=== PATIENT | female | born 1930 | race Caucasian/White ===

== ENCOUNTER 2018-08-21 02:18 | Inpatient (IN) | payer OTHER ==
[~2018-08-21] VITALS: Ht 157.5 cm; Wt 55.3 kg
[2018-08-21 02:18] VITALS: BP 141/57
[~2018-08-21 02:18] MED LIST: ADULT LOW DOSE81 MG PO; ADVAIR 250-501 EACH INH; APAP500 PO; BENADRYL25 MG PO; BUMETANIDE 1 MG1 M1 PO; BUMEX2 MG PO; CELEBREX 200 M200 M1 PO; CELEXA 20 MG TA20 M1 PO; CELEXA 20 MG TA20 MG PO; CELEXA PO; CLONAZEPAM 0.50.5 M1 PO; CLONAZEPAM PO; COLACE1 EAC1 RC; COLACE100 MG PO; CYMBALTA60 MG PO; ENBREL PO; IMDUR 30 MG TAB30 M1 PO; K-DUR10 ME1 PO; K-DUR10 MEQ PO; LEVOTHROID75 MCG PO; LEVOTHYROXIN0.075 MG PO; LOPRESSOR25 PO; LYRICA; MELATONIN3 MG PO; METOPROLOL TART25 MG PO; NEURONTIN 400400 M1 PO; NEURONTIN 400M400 M2 PO; NIASPAN 500 MG500 M1 PO; NITROQUICK0.4 MG SUBLING; OMEPRAZOLE20 MG PO; PLAVIX 75 MG TA75 MG PO; PROVENTIL; SIMVASTATIN40 MG PO; TOPROL XL25 MG PO; TRAMADOL; ZOFRAN ODT4 MG PO
[2018-08-21] MEDS ORDERED: PROTONIX 20 MG20 M1 PO (02:29)
[2018-08-21 02:42] LABS: ABSOLUTE NEUTROPHILS 4.7 thou/uL (1.4-8.2); BASOPHILS 1.3 % (0.0-2.0); EOSINOPHILS 4.8 % (0.0-3.0); HEMOGLOBIN 12.2 gm/dL (12.0-15.0); LYMPHOCYTES 29.6 % (24.0-44.0); MCV 91.1 fL (80.0-100.0); MONOCYTES 10.2 % (1.0-8.0); PLATELET COUNT 199 thou/uL (150-400); POLYS 54.1 % (36.0-66.0); RBC 3.95 mil/uL (4.20-5.00); RDW 12.8 % (10.5-14.5); WBC 8.8 thou/uL (4.0-11.0)
[2018-08-21 02:49] LABS: ANION GAP 10 mmol/L (7-16); BUN 17 mg/dL (7-18); CALCIUM 8.5 mg/dL (8.5-10.1); CHLORIDE 107 mmol/L (98-107); CO2 25 mmol/L (21-32); CREATININE 1.1 mg/dL (0.6-1.0); GLUCOSE 98 mg/dL (74-106); POTASSIUM 4.2 mmol/L (3.5-5.1); SODIUM 142 mmol/L (136-145)
[2018-08-21 02:57] LABS: TROPONIN-I <0.06 ng/mL (<0.06)
[2018-08-21 06:32] LABS: CHOLESTEROL 114 mg/dL (<200); HDL CHOLESTEROL 43 mg/dL (>40); LDL CHOLESTEROL 22 mg/dL (<100); TC:HDL 2.7 Ratio (Not establshd); TRIGLYCERIDE 246 mg/dL (<150); VLDL 49 mg/dL (<40)
[2018-08-21 06:34] LABS: SERUM ASSESSMENT Moderate Lipemia
[2018-08-21 07:20] VITALS: BP 125/62
[2018-08-21 12:00] VITALS: BP 101/55
[2018-08-21 16:00] VITALS: BP 109/44
--- NOTE | 2018-08-21 16:58 | 2DMMODE ---
[facility] [address] [place] [address] 2 D/M-MODE ECHOCARDIOGRAM Name: MILLYJUAN SURJIT Room #: 211-P ADM IN M.R.#: [id number] ������������� Admission: 08/21/18 ������������� Attend Phys: Nilton Kessler, Discharge: ��� ������������� ��� Date of : 32 Date of Service: 08/21/18 1658 �� Report #: [id number] �������� ��������������������������������������������[id number] THIS REPORT FOR: //name// APPROVED REPORT Study performed: 08/21/2018 12:18:12 EXAM: Comprehensive 2D, Doppler, and color-flow Echocardiogram Patient Location: Bedside Room #: 211 Status: on-call BSA: 1.55 HR: 81 bpm BP: 125/62 mmHg Rhythm: NSR Other Information Study Quality: Adequate Risk Factors: Cardiac Risk Factors: HTN, Hyperlipidemia Indications Dyspnea CAD Chest Pain 2D Dimensions IVSd: 10.49 (7-11mm) LVOT Diam: 18.00 (18-24mm) LVDd: 40.34 mm PWd: 10.85 (7-11mm) Ascending Ao: 25.96 (22-36mm) LVDs: 27.21 (25-40mm) Aortic Root: 26.22 mm LV Single Plane 4CH: 60.96 % LV Single Plane 2CH: 68.33 % Biplane EF: 64.3 % Volumes Left Atrial Volume (Systole) Single Plane 4CH: 20.17 mL Single Plane 2CH: 35.82 mL LA ESV Index: 22.00 mL/m2 Aortic Valve AoV Peak Jaron.: 1.59 m/s AO Peak Gr.: 10.05 mmHg LVOT Max P.67 mmHg [facility] [address] [place] [address] 2 D/M-MODE ECHOCARDIOGRAM Name: JUAN ATKINS Room #: [address] [place] [address] [place] .R.#: [id number] ������������� Admission: 08/21/18 ������������� Attend Phys: Nilton Kessler, Discharge: ��� ������������� ��� Date of : 32 Date of Service: 08/21/18 1658 �� Report #: [id number] �������� ��������������������������������������������[id number] LVOT Max V: 1.19 m/s ALESSANDRO Vmax: 1.89 cm2 AI Vmax: 3.86 m/s AI Ocean: 2.30 m/s2 AI PHT: 485.64 ms Mitral Valve E/A Ratio: 0.7 MV Decel. Time: 241.29 ms MV E Max Jaron.: 0.73 m/s MV A Jaron.: 1.07 m/s MV PHT: 69.97 ms IVRT: 72.66 ms TDI E/Lateral E': 14.60 E/Medial E': 10.43 Medial E' Jaron.: 0.07 m/s Lateral E' Jaron.: 0.05 m/s Pulmonary Valve PV Peak Jaron.: 1.14 m/s PV Peak Gr.: 5.19 mmHg Pulmonary Vein P Vein S: 0.62 m/s P Vein A: 0.24 m/s P Vein D: 0.47 m/s P Vein A Dur.: 100.3 msec P Vein S/D Ratio: 1.32 Tricuspid Valve TR Peak Jaron.: 2.45 m/s RAP Estimate: 7.00 mmHg TR Peak Gr.: 23.93 mmHg PA Pressure: 31.00 mmHg Left Ventricle The left ventricle is normal size. There is normal LV segmental wall motion. There is normal left ventricular wall thickness. Left ventricular systolic function is normal. The left ventricular ejection fraction is within the normal range. LVEF is 60-65%. Mild diastolic dysfunction is present (impaired relaxation pattern). Right Ventricle The right ventricle is normal size. The right ventricular systolic function is normal. Atria The left atrium size is normal. The right atrium size is [facility] [address] [place] [address] 2 D/M-MODE ECHOCARDIOGRAM Name: JUAN ATKINS Room #: [address] [place] [address] [place] ..#: [id number] ������������� Admission: 08/21/18 ������������� Attend Phys: Nilton Kessler, Discharge: ��� ������������� ��� Date of : 32 Date of Service: 08/21/18 1658 �� Report #: [id number] �������� ��������������������������������������������[id number] normal. Aortic Valve The Aortic valve is sclerotic. Mild to moderate aortic regurgitation. There is no aortic valvular stenosis. Mitral Valve There is mitral annular calcification. Mild mitral regurgitation. No evidence of mitral valve stenosis. Tricuspid Valve The tricuspid valve is normal in structure. Mild tricuspid regurgitation. Pulmonary artery pressure is 31 mmHg. Pulmonic Valve The pulmonary valve is normal in structure. Mild to moderate pulmonic regurgitation. Great Vessels The aortic root is normal in size. IVC is normal in size and collapses >50% with inspiration. Pericardium There is no pericardial effusion. <Conclusion> The left ventricle is normal size. LVEF is 60-65%. The Aortic valve is sclerotic. Mild to moderate aortic regurgitation. There is mitral annular calcification. Mild mitral regurgitation. The tricuspid valve is normal in structure. Mild tricuspid regurgitation. Pulmonary artery pressure is 31 mmHg. The pulmonary valve is normal in structure. Mild to moderate pulmonic regurgitation. There is no pericardial effusion. ��������������������������������������������� <ELECTRONICALLY SIGNED> ���������������������������������������� By: Paulino Carrasco MD ��������������������������������������������� 08/21/18 1658 1658 57 Paulino Carrasco MD /INF
--- NOTE | 2018-08-21 19:10 | HC ---
[facility] [place] [place] [address] CONSULTATION Name: JUAN ATKINS Room #: 211-P ADM IN M.R.#: [id number] Admission: 08/21/18 ������������������ Attend Phys: Nilton Kessler MD Discharge: ������������������ Date of : 31 Report #: [id number] THIS REPORT FOR: //name// CC: Nilton Hill REASON FOR CONSULTATION: Chest pain. HISTORY OF PRESENT ILLNESS: This is a very pleasant 88-year-old female patient with known coronary artery disease, having undergone stenting by Dr. Barry at [facility] in the past, presented for chest discomfort. The patient stated she has been having these substernal discomforts lasting less than 5 minutes, associated with shortness of breath. These were midsternal and nonradiating except to the left chest and armpit. Did not go into the neck or the back. Said that they occurred when lying down and not with activity. She has been very active with her daily activities and did not notice any significant symptoms. She stated she took 12 nitro sublingual for these episodes without any improvement whatsoever. She noted that it likely did not even make a slight dent in discomfort. She did have some tomato soup in the evening and had emesis with eruptions post. She took a Prilosec also last night for which she has a history of gallbladder disease and acid peptic disease. She states that this discomfort is different than what she had when she was stented. She has no syncope or near syncope, no palpitations per se. No dependent or nondependent edema. PAST MEDICAL HISTORY: Significant for: 1. Coronary artery disease. 2. Hypertension. 3. Hypothyroidism, supplemented medically. 4. Acid peptic disease. PAST SURGICAL HISTORY: Significant for: 1. Spinal cord stimulator insertion. 2. Intracoronary stenting. 3. Tonsillectomy, adenoidectomy. MEDICATIONS: Synthroid 0.075 mg daily, metoprolol 25 mg b.i.d., aspirin 81 mg b.i.d., Benadryl as needed, clonazepam b.i.d., Zocor 40 mg at bedtime, potassium chloride 10 mEq daily, Advair 250/50 Diskus 1 puff b.i.d., Colace daily, Imdur 30 mg daily, Protonix 20 mg daily, sublingual nitroglycerin p.r.n., Celexa 20 mg daily, Neurontin 400 mg t.i.d. and melatonin at bedtime. SOCIAL HISTORY: The patient does not smoke currently, but is a former smoker of 1-2 packs a day for 40 years. She has quit in 1990. She does not consume alcohol, does not follow a particular exercise regimen or dietary restriction. ELECTROCARDIOGRAM: Normal sinus rhythm, nonspecific [place] [address] CONSULTATION Name: JUAN ATKINS Room #: 211-P [facility] IN M.R.#: [id number] Admission: 08/21/18 ������������������ Attend Phys: Nilton Kessler MD Discharge: ������������������ Date of : 31 Report #: [id number] REVIEW OF SYSTEMS: Except for symptoms previously mentioned and those commensurate with comorbid state, the 10-point review of system is negative. ALLERGIES: ERYTHROMYCIN BASE, WHICH CAUSES UPSET STOMACH. LABORATORY DATA: Demonstrates BUN and creatinine of 17 and 1.1 with a potassium of 4.2. H and H is 12.2 and 36.0 with a platelet count 199,000. RADIOLOGIC DATA: Pending. PHYSICAL EXAMINATION: GENERAL: Well-developed, well-nourished female resting comfortably, in no acute distress. VITAL SIGNS: Noted and reviewed in the chart. HEENT: Normocephalic, atraumatic. Pupils are equal, round, reactive to light and accommodation. Extraocular muscles are intact. Sclerae and conjunctivae are anicteric. NECK: JVD is normal. Carotid upstrokes are bilaterally symmetrical. No bruits are heard. No thyromegaly. No lymphadenopathy. LUNGS: Clear to auscultation. No wheezes, rhonchi or crackles. No CVA tenderness. CARDIAC: Demonstrates a regular rhythm. Normal first and second heart sounds. No ventricular or atrial gallops, no rubs noted. No murmurs. No lifts or heaves, PMI normal. ABDOMEN: Soft, nontender, nondistended. Normal bowel sounds. EXTREMITIES: Without cyanosis, clubbing or edema. Distal pulses are intact. DTR symmetrical. NEUROLOGIC: Cranial nerves 2-12 are grossly normal and symmetrical. PSYCHIATRIC: Alert, oriented with normal affect. SKIN: Warm and dry. IMPRESSION: 1. Chest pain, some atypical and typical features. She does have coronary artery disease and risk factors and I think that I am going to increase her GI regimen with the Prilosec to 40 mg a day, but I am also going to get a perfusion scan on Thursday just to exclude any type of ischemic burden. Symptomatology may be different. She does not remember exactly what the symptoms were prior to her stent, so her notification of this being completely different may not be accurate. We will get a 2D echo Doppler to rule out any structural abnormalities also. 2. Hypertension. We will have to check her blood pressures while in the hospital and then we can augment them as necessary. 3. Hypothyroidism, treated medically. 4. History of transient ischemic attacks, which are very vague and I do not have any data on this. We may need to pursue this more fully subsequently. [facility] [place] [address] CONSULTATION Name: JUAN ATKINS SURJIT Room #: 211-P ADM IN .R.#: [id number] Admission: 08/21/18 ������������������ Attend Phys: Nilton Kessler MD Discharge: ������������������ Date of : 31 Report #: [id number] 5. Dyslipidemia. The patient is on a statin. We will see where the LDLs are from her current dosing and then make recommendations subsequent to that. We discussed briefly [employer] step 1 diet, which we will proceed with more emphasis subsequently. ��������������������������������������������� <ELECTRONICALLY SIGNED> ���������������������������������������� By: Paulino Carrasco MD ��������������������������������������������� 08/21/18 1910 1145 1235 Paulino Carrasco MD /nt
--- NOTE | 2018-08-21 19:50 | NUR ---
PATIENT ALERT AND ORIENTED WITH DAUGHTER AT BEDSIDE. PATIENT UP WITH WALKER WITH SBA TO BATHROOM, BUT SOMETIMES FORGETS TO CALL NURSE. PATIENT STATES SHE USES BOTH WALKER AND CANE AT HOME AND LIVES IN A TRI-LEVEL HOME. PATIENT DENIED ANY CHEST PAIN THIS AFTER NOON BUT STATED SHE HAD MILD PAIN ON THE LEFT SIDE OF HER CHEST THIS AM. STRESS TEST SCHEDULED FOR THURSDAY.
[2018-08-21 20:15] VITALS: BP 109/48
--- NOTE | 2018-08-22 04:17 | NUR ---
PT CALLING APPROPRIATLY FOR ASSISTANCE, VSS, NO C/O PAIN, [place], WONDERING WHEN SHE WILL GO HOME, WILL CON'T TO MONITOR PER PPOC.
[2018-08-22 04:30] VITALS: BP 134/74
[2018-08-22 08:50] VITALS: BP 122/47
[2018-08-22 12:00] VITALS: BP 126/43
[2018-08-22 16:00] VITALS: BP 130/45
--- NOTE | 2018-08-22 17:38 | NUR ---
ASSESSMENT DOCUMENTED. PT ALERT AND ORIENTED. PLEASANT AND COOPERATIVE WITH CARES. DENIED HAVING PAIN OR DISCOMFORT. NO RESPITORY OR CARDIAC DISTRESS NOTED. WILL CONTINUE TO MONITOR.
[2018-08-22 19:54] VITALS: BP 123/44
--- NOTE | 2018-08-23 03:41 | NUR ---
ASSESSMENT DOCUMENTED.PT BEEN RESTING IN NO ACUTE DISTRESS.A/OX4.VSS.PT DENIES CHEST PAIN.UP WITH A WALKER.SR ON MONITOR.NPO AFTER MIDNOC FOR STRESS TEST THIS AM AND PROBABLY GO HOME LATER IF STRESS TEST IS NEGATIVE.WILL CONT TO MONITOR PER POC.
[2018-08-23 04:14] VITALS: BP 114/46
--- NOTE | 2018-08-23 08:06 | EKG ---
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 : 1930 Requested By: Imani Fernando Order Number: [id number] MD: Gilberto Noble Measurements Intervals [place] Rate: 67 P: 67 CO: 156 QRS: 14 QRSD: 81 T: 44 QT: 433 QTc: 457 Interpretive Statements Sinus rhythm Low voltage, precordial leads Compared to ECG 03/22/2016 21:00:21 Sinus bradycardia no longer present Electronically Signed On 08-23-2018 8:06:01 CDT by Gilberto Noble [email or web address] ��������������������������������������������� <ELECTRONICALLY SIGNED> ���������������������������������������� By: Gilberto Noble MD, [facility] ��������������������������������������������� 08/23/18 0806 Gilberto Noble MD, [facility] /EPI
[2018-08-23 09:15] VITALS: BP 120/47
[2018-08-23 16:11] VITALS: BP 105/54
[2018-08-23 16:19] VITALS: BP 105/54
--- NOTE | 2018-08-23 16:23 | NUR ---
IF PT. SHOULD DISCHARGE TODAY PLEASE FAX ORDERS TO [facility] [phone] AND CALL [phone] TO [employer]UME [employer]IOR [employer]EM[employer].
--- NOTE | 2018-08-23 16:25 | NUR ---
met with patient and dtr at bedside. patient resides with dtr in multilevel home. patient reports steps to bedroom and bathroom on same level. Main level with kitchen, and steps to garage area for transport. Dtr works during day home by 6:30. Patient has lifeline. Patient has a walker on bedroom and main level. She reports in her room, bathroom close to her bed. She ambulates with walker, has grab bars by commode and shower. She has [employer] [facility] currently. She plans dc home with [facility] and has no concerns with dc home.
[2018-08-23 16:32] VITALS: BP 105/54
[2018-08-23 16:33] VITALS: BP 105/54
--- NOTE | 2018-08-23 18:26 | NUR ---
ASSESSMENT DOCUMENTED. PT ALERT AND ORIENTED. DENIED HAVING PAIN OR DISCOMFORT. VSS. HAD STRESS TEST THIS AM. ORDERS GIVEN TO DISCHARGE PT TO HOME WITH HEALTH. DISCHARGE INSTRUCTIONS GIVEN TO PT. PT VERBERLIZE UNDERSTANDING.
--- NOTE | 2018-08-24 10:01 | NUR ---
PT. DISCHARGED LATE WEDNESDAY 08/23 DCP FAXED DC ORDERS/SUMMARY TO [facility] FOR RESUMPTION OF CARE. SPOKE WITH SHERYL IN ADM. SHE RECEIVED DC ORDERS AND WILL NOTIFY PT. OF TIME OF VISITS.
[2018-08-25 14:20] VITALS: BP 105/54
== END 2018-08-23 18:29 | disposition home health service (06) | DRG 206 ==
LOC: ER 02:18 → EROBS 04:29 → 2N 04:29 → ENTRNSPT 08-23 18:04 → 2N 08-23 18:29
PROVIDERS: Emergency Medicine; Nurse Practitioner Acute Care; ADMIT Internal Medicine
DX: M94.0 Chondrocostal junction syndrome [Tietze] (principal); I25.10 Atherosclerotic heart disease of native coronary artery without angina pectoris; N18.3 Chronic kidney disease, stage 3 (moderate); K21.9 Gastro-esophageal reflux disease without esophagitis; F32.9 Major depressive disorder, single episode, unspecified; I12.9 Hypertensive chronic kidney disease with stage 1 through stage 4 chronic kidney disease, or unspecified chronic kidney disease; E03.9 Hypothyroidism, unspecified; E78.5 Hyperlipidemia, unspecified; Z95.5 Presence of coronary angioplasty implant and graft; Z90.49 Acquired absence of other specified parts of digestive tract; Z88.1 Allergy status to other antibiotic agents; Z87.891 Personal history of nicotine dependence; Z86.73 Personal history of transient ischemic attack (TIA), and cerebral infarction without residual deficits
CPT/HCPCS: 10081

== ENCOUNTER → 2020-09-12 | Outpatient (CLI) | payer OTHER ==
[~2020-09-12] MED LIST changes: +PROTONIX 20 MG20 M1 PO
== END ==
LOC: RAD 13:09
PROVIDERS: ATTEND Internal Medicine
DX: J44.9 Chronic obstructive pulmonary disease, unspecified (principal); J84.10 Pulmonary fibrosis, unspecified; M41.85 Other forms of scoliosis, thoracolumbar region; Z88.1 Allergy status to other antibiotic agents